=== PATIENT | male | born 1965 | race Hispanic/Latino ===

== ENCOUNTER 2017-07-08 19:42 | Emergency (ER) | payer OTHER ==
[2017-07-08] MEDS ORDERED: CEFAZOLIN SODIUM 1 GM/VIAL ONE (20:57)
[2017-07-08] MEDS ORDERED: FENTANYL CITR 100 MCG/2 ML ONE (20:57)
[2017-07-08] MEDS ORDERED: TETANUS & DIPHTHERIA TOX,ADULT 0.5 ML VIAL ONE (20:58)
[2017-07-08] MEDS ORDERED: NA CHLORIDE 0.9% 100 ML IV ONE (20:59)
--- NOTE | 2017-07-08 21:08 | RAD REPORT ---
EXAM DESCRIPTION: RAD - Foot Left 3 View - 07/08/2017 8:58 pm CLINICAL HISTORY: Left Foot pain status post injury FINDINGS: A bony density along the medial aspect of the first MTP joint likely is chronic. Clinical correlation is needed to make sure the patient does not have point tenderness in this region to sugge st an acute process No dislocation is noted. A soft tissue laceration is present along ventral aspect of forefoot. Radiopaque foreign body is not seen
[2017-07-08] MEDS ORDERED: LIDOCAINE 1% 20 ML MDV ONE (22:00)
--- NOTE | 2017-07-08 22:15 | ER ---
Nurse's Notes [facility] Name: Yunior Galindo Age: 52 yrs Sex: Male : 1965 Arrival Date: 07/08/2017 Time: 19:45 Bed 26 Private MD: Diagnosis: Laceration without foreign body, left foot-with tendon injury Presentation: 07/08 19:58 Presenting complaint: Patient states: I cut my left foot with a chain saw, CMS intact, la1 pt presents with dressing applied. Transition of care: patient was not received from another setting of care. Complicating Factors: There are no complicating factors for this patient. Onset of symptoms was July 08, 2017. Care prior to arrival: None. 19:58 Method Of Arrival: Ambulatory la1 19:58 Acuity: RUDY 3 la1 Historical: - Allergies: 19:59 No Known Allergies; la1 - PMHx: 19:59 Asthma; BPH; Hyperlipidemia; la1 - Immunization history:: Adult Immunizations up to date. - Social history:: Smoking status: Patient/guardian denies using tobacco. Screenin:24 Abuse screen: Denies threats or abuse. Nutritional screening: No deficits noted. tl3 Tuberculosis screening: No symptoms or risk factors identified. Fall Risk None identified. Assessment: 20:24 General: Appears in no apparent distress. well groomed, well developed, well nourished, tl3 Behavior is calm, cooperative, appropriate for age. Pain: Complains of pain in top of left foot. Neuro: Level of Consciousness is awake, alert, obeys commands, Oriented to person, place, time, situation, Appropriate for age. Cardiovascular: Heart tones S1 S2 present Capillary refill < 3 seconds in bilateral fingers toes. Respiratory: Airway is patent Trachea midline Breath sounds are clear bilaterally. GI: Abdomen is round Bowel sounds present X 4 quads. : No signs and/or symptoms were reported regarding the genitourinary system. EENT: No signs and/or symptoms were reported regarding the EENT system. Derm: No signs and/or symptoms reported regarding the dermatologic system. Derm: No signs and/or symptoms reported regarding the dermatologic system. Reports pain that is 10 out of 10 on a pain scale. 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 Musculoskeletal: Capillary refill < 3 seconds, in left toes. Injury Description: Laceration sustained to left foot is contaminated, jagged. 21:25 Reassessment: Patient appears in no apparent distress at this time. No changes from tl3 previously documented assessment. Patient and/or family updated on plan of care and expected duration. Pain level reassessed. Patient is alert, oriented x 3, equal unlabored respirations, skin warm/dry/pink. 23:00 Reassessment: Patient and/or family updated on plan of care and expected duration. Pain tl3 level reassessed. Patient is alert, oriented x 3, equal unlabored respirations, skin warm/dry/pink. pt tolerated sutures and splinting well. Vital Signs: 19:59 BP 130 / 92; Pulse 86; Resp 16; Temp 98.4(TE); Pulse Ox 100% on R/A; Weight 77.11 kg; la1 Height 5 ft. 4 in. (162.56 cm); 21:25 BP 128 / 75; Pulse 82; Resp 16; Pulse Ox 100% on R/A; tl3 23:00 BP 130 / 78; Pulse 78; Resp 16; Pulse Ox 99% on R/A; tl3 19:59 Body Mass Index 29.18 (77.11 kg, 162.56 cm) la1 ED Course: 19:45 Patient arrived in ED. am2 19:58 Triage completed. la1 19:59 Arm band placed on left wrist. la1 20:02 Alden Moise PA is PHCP. aa1 20:02 Lukas Light MD is Attending Physician. aa1 20:24 Yuridia Campa, WAYNE is Primary Nurse. tl3 20:24 No apparent distress. tl3 20:24 Patient has correct armband on for positive identification. Bed in low position. Side tl3 rails up X 1. 20:24 No provider procedures requiring assistance completed. tl3 20:59 XRAY Foot LEFT 3 View In Process Unspecified. EDMS 21:25 Warm blanket given. tl3 22:13 Checo Alcaraz MD is Referral Physician. jr8 23:00 Crutch training done. Orthoglass splint: Posterior short lleg splint applied on right tl3 leg. 23:00 IV discontinued, intact, bleeding controlled, No redness/swelling at site. Pressure tl3 dressing applied. 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 Exp: tl3 07/13/2019. Lot #: [id number]. } Route: IM; Site: right deltoid; 07/09 02:18 Follow up: Response: No adverse reaction tl3 07/08 21:00 Drug: Ancef 1 grams Route: IVPB; Site: left antecubital; Delivery: Primary tubing; tl3 07/09 02:17 Follow up: Response: No adverse reaction tl3 07/08 21:20 Drug: Lidocaine (1 %) 1 vials {Note: per Alden.} Volume: 20 ml; Route: Infiltration; tl3 07/09 02:15 Follow up: Response: No adverse reaction tl3 Outcome: 07/08 22:14 Discharge ordered by . jr8 23:00 Discharged to home ambulatory. tl3 23:00 Condition: good 23:00 Discharge instructions given to patient, family, Instructed on discharge instructions, follow up and referral plans. medication usage, crutch walking, Demonstrated understanding of instructions, follow-up care, medications, crutch walking, splint care, Prescriptions given X 1, 2. 23:16 Patient left the ED. tl3 Signatures: Dispatcher [employer] EDMS Mary Farmer RN RN aa1 Alden Moise PA PA jr8 Jovon Dubose RN RN la1 Pascale Rodriguez Tammy, RN RN tl3 Corrections: (The following items were deleted from the chart) 07/09 02:22 07/08 21:25 Crutch training done. Orthoglass splint: Posterior short lleg splint tl3 applied on right leg. tl3
--- NOTE | 2017-07-08 22:15 | EDPHYS ---
Physician Documentation [facility] Name: Yunior Galindo Age: 52 yrs Sex: Male : 1965 Arrival Date: 07/08/2017 Time: 19:45 Bed 26 Private MD: ED Physician Lukas Light HPI: 07/08 21:16 This 52 yrs old Male presents to ER via Ambulatory with complaints of jr8 Laceration To Foot. 21:16 Onset: The symptoms/episode began/occurred acutely, today. Associated signs and jr8 symptoms: The patient has no apparent associated signs or symptoms. The patient has not experienced similar symptoms in the past. The patient has not recently seen a physician. Patient stated that he accidently cut left foot with chain saw . Historical: - Allergies: 19:59 No Known Allergies; la1 - PMHx: 19:59 Asthma; BPH; Hyperlipidemia; la1 - Immunization history:: Adult Immunizations up to date. - Social history:: Smoking status: Patient/guardian denies using tobacco. ROS: 21:17 Eyes: Negative for injury, pain, redness, and discharge, ENT: Negative for injury, jr8 pain, and discharge, Neck: Negative for injury, pain, and swelling, Cardiovascular: Negative for chest pain, palpitations, and edema, Respiratory: Negative for shortness of breath, cough, wheezing, and pleuritic chest pain, Abdomen/GI: Negative for abdominal pain, nausea, vomiting, diarrhea, and constipation, Back: Negative for injury and pain, MS/Extremity: Negative for injury and deformity, Neuro: Negative for headache, weakness, numbness, tingling, and seizure. 21:17 Skin: Positive for laceration(s), of the left foot. Exam: 21:17 Cardiovascular: Regular rate and rhythm with a normal S1 and S2. No gallops, murmurs, jr8 or rubs. Normal PMI, no JVD. No pulse deficits. Respiratory: Lungs have equal breath sounds bilaterally, clear to auscultation and percussion. No rales, rhonchi or wheezes noted. No increased work of breathing, no retractions or nasal flaring. Abdomen/GI: Soft, non-tender, with normal bowel sounds. No distension or tympany. No guarding or rebound. No evidence of tenderness throughout. Back: No spinal tenderness. No costovertebral tenderness. Full range of motion. Skin: Warm, dry with normal turgor. Normal color with no rashes, no lesions, and no evidence of cellulitis. Neuro: Awake and alert, GCS 15, oriented to person, place, time, and situation. Cranial nerves II-XII grossly intact. Motor strength 5/5 in all extremities. Sensory grossly intact. Cerebellar exam normal. Normal gait. 21:17 Musculoskeletal/extremity: Extremities: grossly normal except: noted in the left foot: Patient has approximately 7 cm laceration to dorsum of left foot extending over 1st digit. Tendon injury noted to what appears to be the extensor hallicus longus , ROM: Decreased extensor motion to first digit of foot. Otherwise full ROM noted to affected foot , Circulation is intact in all extremities. Sensation intact. Vital Signs: 19:59 BP 130 / 92; Pulse 86; Resp 16; Temp 98.4(TE); Pulse Ox 100% on R/A; Weight 77.11 kg; la1 Height 5 ft. 4 in. (162.56 cm); 21:25 BP 128 / 75; Pulse 82; Resp 16; Pulse Ox 100% on R/A; tl3 23:00 BP 130 / 78; Pulse 78; Resp 16; Pulse Ox 99% on R/A; tl3 19:59 Body Mass Index 29.18 (77.11 kg, 162.56 cm) la1 Procedures: 22:13 Splinting: Splint applied to left foot using Orthoglass splint, applied by nurse. jr8 Examined by me, post splint application: neurovascular intact, 2+ distal pulses palpable, brisk capillary refill noted, Patient tolerated well. Laceration: 22:13 Wound Repair of 7cm ( 2.8in ) subcutaneous laceration to left foot. Irregularly jr8 shaped.. Minimal bleeding noted.. Distal neuro/vascular/tendon intact. Anesthesia: Local anesthetic administered with 8 mls of 1% lidocaine. Wound prep: Extensive cleansing with betadine, Wound irrigation with saline, Wound margin revised moderately, Wound explored extensively, Copious irrigation. Skin closed with 10 4-0 Prolene using interrupted sutures and sterile technique. Patient tolerated well. MDM: 20:13 Patient medically screened. jr8 21:17 Data reviewed: vital signs, nurses notes, radiologic studies, plain films. Counseling: jr8 I had a detailed discussion with the patient and/or guardian regarding: the historical points, exam findings, and any diagnostic results supporting the discharge/admit diagnosis, radiology results, the need for outpatient follow up, a orthopedic surgeon. ED course: Dr. Alcaraz consulted about tendon injury. Will be glad to see patient in the AM at his office. To go ahead and close wound for time being . 07/08 20:16 Order name: XRAY Foot LEFT 3 View; Complete Time: 21:09 8 07/08 20:18 Order name: IV; Complete Time: 02:17 8 07/08 22:12 Order name: Splint; Complete Time: 02:15 jr8 Administered Medications: 20:18 CANCELLED (Physician Discretion): Ancef 1 grams IM once 8 20:20 Drug: fentaNYL (PF) 50 mcg Route: IVP; Site: left antecubital; 3 21:00 Follow up: Response: No adverse reaction; Pain is decreased tl3 21:00 Drug: Tetanus-Diphtheria Toxoid Adult 0.5 ml {Super[employer] Par[employer]: [employer] ([employer]). Exp: tl3 07/13/2019. Lot #: [id number]. } Route: IM; Site: right deltoid; 07/09 02:18 Follow up: Response: No adverse reaction 3 07/08 21:00 Drug: Ancef 1 grams Route: IVPB; Site: left antecubital; Delivery: Primary tubing; 3 07/09 02:17 Follow up: Response: No adverse reaction 3 07/08 21:20 Drug: Lidocaine (1 %) 1 vials {Note: per Alden.} Volume: 20 ml; Route: Infiltration; 3 07/09 02:15 Follow up: Response: No adverse reaction 3 Disposition: 00:19 Co-signature as Attending Physician, Lukas Light MD. pkl Disposition: 07/08/17 22:14 Discharged to Home. Impression: Laceration without foreign body, left foot - with tendon injury . - Condition is Stable. - Discharge Instructions: Tendon Injury, Tendon Repair, Laceration Care, Adult, [id number]. - Prescriptions for Keflex 500 mg Oral Capsule - take 1 capsule by ORAL route every 8 hours for 10 days; 30 capsule. Tylenol- Codeine #3 300-30 mg Oral Tablet - take 2 tablet by ORAL route every 6 hours As needed; 30 tablet. - Medication Reconciliation Form, Thank You Letter, Antibiotic Education, Prescription Opioid Use form. - Follow up: Checo Alcaraz MD; When: Tomorrow; Reason: Recheck today's complaints, Continuance of care, Re-evaluation by your physician. - Problem is new. - Symptoms have improved. Signatures: Dispatcher [employer] EDMS Lukas Light MD MD pkl Roszak, Josh, PA PA jr8 Jovon Dubose RN RN la1 Yuridia Campa RN RN tl3 Corrections: (The following items were deleted from the chart) 07/08 20:18 20:17 Ancef 1 grams IM once ordered. jr8 jr8
[2017-07-08 23:19] VITALS: BP 130/92; TEMP 98.4; O2SAT 100
== END 2017-07-08 23:16 | disposition home or self-care (01) ==
LOC: ER 19:42
PROC: 0JQR0ZZ Repair Left Foot Subcutaneous Tissue and Fascia, Open Approach (ICD-10-PCS; principal; 2017-07-08)
PROC: 2W3RX1Z Immobilization of Left Lower Leg using Splint (ICD-10-PCS; 2017-07-08)
DX: S91.312A Laceration without foreign body, left foot, initial encounter (principal); W29.3XXA Contact with powered garden and outdoor hand tools and machinery, initial encounter; Y93.9 Activity, unspecified; Y92.9 Unspecified place or not applicable; Y99.9 Unspecified external cause status
CPT/HCPCS: 90714; 96374; 96375; 99284; J0690; J3010

== ENCOUNTER 2020-05-23 22:49 | Emergency (ER) | payer SELFPAY ==
[2020-05-23] MEDS ORDERED: NA CHLORIDE 0.9% 1,000 ML ONE (23:49)
[2020-05-23 23:54] LABS: Protime INR 0.93
[2020-05-23 23:55] LABS: Absolute Lymphocytes (CBC) 1.7 K/uL (0.7-4.9); Basophils % 0.6 % (0-1.3); Hematocrit 45.9 % (39.6-49.0); Lymphocytes % 17.6 % (15.3-44.8); MPV 9.8 fL (7.6-11.3); RBC Red Blood Cell Count 5.04 M/uL (4.33-5.43)
[2020-05-24 00:19] LABS: ALT/SGPT 44 U/L (12-78); AST/SGOT 26 U/L (15-37); Albumin 4.3 g/dL (3.4-5.0); Alkaline Phosphatase 107 U/L (45-117); BUN Blood Urea Nitrogen 19 mg/dL (7-18); Bicarbonate 24 mmol/L (21-32); Bilirubin Direct < 0.1 mg/dL (0-0.2); Bilirubin Total 0.5 mg/dL (0.2-1.0); Glucose Level 115 mg/dL (74-106); Magnesium 2.1 mg/dL (1.8-2.4); NT PRO-BNP 111 pg/mL (<125); Potassium 3.9 mmol/L (3.5-5.1); Protein, Total 8.4 g/dL (6.4-8.2); Sodium Level 141 mmol/L (136-145); Troponin (Emerg Dept Use Only) < 0.02 ng/mL (0.0-0.045)
--- NOTE | 2020-05-24 00:44 | ER ---
Nurse's Notes [facility] Name: Yunior Galindo Age: 54 yrs Sex: Male : 1965 Arrival Date: 05/23/2020 Time: 22:53 Bed 15 Private MD: Diagnosis: Syncope and collapse Presentation: 05/23 23:01 Chief complaint: EMS states: Patient was standing and suddenly passed out and fell onto 1 back. EMS stated that by standards stated patient did not hit head, also stated patient was confused upon arrival but is now AOx4. Patient has no history of seizures. Patient currently takes hydrocodone PRN for chronic back pain and Ambien to aid in sleep. Coronavirus screen: Client denies travel out of the [place] in the last 14 days. Ebola Screen: Patient negative for fever greater than or equal to 101.5 degrees Fahrenheit, and additional compatible Ebola Virus Disease symptoms. Initial Sepsis Screen: Does the patient meet any 2 criteria? No. Patient's initial sepsis screen is negative. Does the patient have a suspected source of infection? No. Patient's initial sepsis screen is negative. Risk Assessment: Do you want to hurt yourself or someone else? Patient reports no desire to harm self or others. Onset of symptoms was May 23, 2020. 23:01 Method Of Arrival: EMS: [facility] 23:01 Acuity: RUDY 3 vg1 Historical: - Allergies: 23:07 No Known Allergies; vg1 - Home Meds: 23:07 Ambien 5 mg Oral tab 1 tab once daily for Sleep-Onset Insomnia [Active]; tamsulosin 0.4 vg1 mg Oral cp24 1 cap once daily for Symptomatic Benign Prostatic Hyperplasia [Active]; naproxen 250 mg Oral tab [Active]; - PMHx: 23:07 Asthma; BPH; Hyperlipidemia; vg1 - Immunization history:: Adult Immunizations up to date. - Social history:: Smoking status: Patient denies any tobacco usage or history of. Screenin:08 Abuse screen: Denies threats or abuse. Nutritional screening: No deficits noted. vg1 Tuberculosis screening: No symptoms or risk factors identified. Fall Risk Fall in past 12 months (25 points). No secondary diagnosis (0 pts). No IV (0 pts). Ambulatory Aid- None/Bed Rest/Nurse Assist (0 pts). Gait- Normal/Bed Rest/Wheelchair (0 pts) Mental Status- Oriented to own ability (0 pts). Total Rodriguez Fall Scale indicates Low Risk Score (25-44 pts). Fall prevention measures have been instituted. Side Rails Up X 2 Placed close to Nursing Station. Assessment: 23:07 General: Appears in no apparent distress. comfortable, Behavior is calm, cooperative. vg1 Pain: Denies pain. Neuro: Level of Consciousness is awake, alert, obeys commands, Oriented to person, place, time, situation. Cardiovascular: Patient's skin is warm and dry. Respiratory: Airway is patent Respiratory effort is even, unlabored, Respiratory pattern is regular, symmetrical. GI: No signs and/or symptoms were reported involving the gastrointestinal system. : No signs and/or symptoms were reported regarding the genitourinary system. EENT: No signs and/or symptoms were reported regarding the EENT system. Derm: Skin is intact, is healthy with good turgor. Musculoskeletal: Circulation, motion, and sensation intact. Vital Signs: 23:01 BP 151 / 77; Pulse 106; Resp 18; Temp 98.2; Pulse Ox 98% on R/A; Weight 81.65 kg; vg1 Height 5 ft. 6 in. (167.64 cm); Pain 0/10; 23:38 BP 164 / 92 Supine; Pulse 90; vg1 23:41 BP 165 / 88 Sitting; Pulse 95; vg1 23:44 BP 161 / 99 Standing; Pulse 99; vg1 05/24 00:51 BP 151 / 89; Pulse 80; Resp 18; Pulse Ox 100% on R/A; mg2 05/23 23:01 Body Mass Index 29.05 (81.65 kg, 167.64 cm) vg1 ED Course: 05/23 22:53 Patient arrived in ED. mw2 22:55 Callie Pressley RN is Primary Nurse. vg1 23:00 Eduardo Love NP is PHCP. pm1 23:00 Stewart Farfan MD is Attending Physician. pm1 23:05 Triage completed. vg1 23:09 Patient has correct armband on for positive identification. Placed in gown. Bed in low vg1 position. Call light in reach. Side rails up X 1. 23:09 Arm band placed on. vg1 23:40 Inserted saline lock: 20 gauge in left antecubital area, using aseptic technique. Blood mg2 collected. 23:42 No provider procedures requiring assistance completed. mg2 23:[address] via stretcher. vg1 05/24 00:50 IV discontinued, intact, bleeding controlled, No redness/swelling at site. Pressure mg2 dressing applied. 06:16 XRAY Chest (1 view) In Process Unspecified. EDMS 06:16 CT Head Brain wo Cont In Process Unspecified. EDMS Administered Medications: 05/23 23:41 Drug: NS 0.9% 1000 ml Route: IV; Rate: 1000 ml; Site: left antecubital; mg2 Outcome: 05/24 00:43 Discharge ordered by MD. pm1 00:51 Discharged to home via wheelchair. mg2 00:51 Condition: stable 00:51 Discharge instructions given to patient, Instructed on discharge instructions, follow up and referral plans. Demonstrated understanding of instructions, follow-up care, medications. 00:52 Patient left the ED. mg2 Signatures: Dispatcher [employer] EDMS Eduardo Love, MILTON ETHNOGRAPHER pm1 Arjun Gibson mw2 Jalil Lange, RN RN mg2 Callie Pressley RN RN vg1
--- NOTE | 2020-05-24 00:44 | EDPHYS ---
Physician Documentation [facility] Name: Yunior Galindo Age: 54 yrs Sex: Male : 1965 Arrival Date: 05/23/2020 Time: 22:53 Bed 15 Private MD: ED Physician Stewart Farfan HPI: 05/23 23:21 This 54 yrs old Male presents to ER via EMS with complaints of syncope. pm1 23:21 The patient has experienced syncope, collapsed. Onset: The symptoms/episode pm1 began/occurred just prior to arrival. Duration: This was a single episode. Context: the episode(s) was witnessed, by family, occurred at home, occurred while the patient was standing, Just prior to the episode the patient experienced no apparent symptoms. Associated injury: Other: lower lip, abrasion. Associated signs and symptoms: The patient has no apparent associated signs or symptoms, Pertinent negatives: chest pain, diaphoresis, dizziness, headache, nausea, numbness, palpitations, shortness of breath, tingling, vertigo. The patient has not experienced similar symptoms in the past. Historical: - Allergies: 23:07 No Known Allergies; vg1 - Home Meds: 23:07 Ambien 5 mg Oral tab 1 tab once daily for Sleep-Onset Insomnia [Active]; tamsulosin 0.4 vg1 mg Oral cp24 1 cap once daily for Symptomatic Benign Prostatic Hyperplasia [Active]; naproxen 250 mg Oral tab [Active]; - PMHx: 23:07 Asthma; BPH; Hyperlipidemia; vg1 - Immunization history:: Adult Immunizations up to date. - Social history:: Smoking status: Patient denies any tobacco usage or history of. ROS: 23:21 Constitutional: Negative for fever, chills, and weight loss, Neck: Negative for injury, pm1 pain, and swelling, Cardiovascular: Negative for chest pain, palpitations, and edema, Respiratory: Negative for shortness of breath, cough, wheezing, and pleuritic chest pain, Abdomen/GI: Negative for abdominal pain, nausea, vomiting, diarrhea, and constipation, Back: Negative for injury and pain, MS/Extremity: Negative for injury and deformity, Skin: Negative for injury, rash, and discoloration. 23:21 Neuro: Positive for syncope, Negative for dizziness, headache, numbness, tingling, weakness. Exam: 23:21 Abdomen/GI: Exam negative for acute changes, Inspection: abdomen appears normal, pm1 Palpation: abdomen is soft and non-tender, in all quadrants. 23:21 Constitutional: This is a well developed, well nourished patient who is awake, alert, and in no acute distress. Head/Face: Normocephalic, atraumatic. Neck: Trachea midline, no thyromegaly or masses palpated, and no cervical lymphadenopathy. Supple, full range of motion without nuchal rigidity, or vertebral point tenderness. No Meningismus. Chest/axilla: Normal chest wall appearance and motion. Nontender with no deformity. No lesions are appreciated. 23:21 Back: No spinal tenderness. No costovertebral tenderness. Full range of motion. Skin: Warm, dry with normal turgor. Normal color with no rashes, no lesions, and no evidence of cellulitis. MS/ Extremity: Pulses equal, no cyanosis. Neurovascular intact. Full, normal range of motion. 23:21 Cardiovascular: Exam negative for acute changes, Rate: normal, Rhythm: regular, Pulses: no pulse deficits are appreciated, Heart sounds: normal, normal S1and S2, Edema: is not appreciated. 23:21 Respiratory: Exam negative for acute changes, the patient does not display signs of respiratory distress, Respirations: normal, Breath sounds: are clear throughout. 23:21 Neuro: Exam negative for acute changes, Orientation: is normal, Mentation: is normal, Motor: is normal, moves all fours. Vital Signs: 23:01 BP 151 / 77; Pulse 106; Resp 18; Temp 98.2; Pulse Ox 98% on R/A; Weight 81.65 kg; vg1 Height 5 ft. 6 in. (167.64 cm); Pain 0/10; 23:38 BP 164 / 92 Supine; Pulse 90; vg1 23:41 BP 165 / 88 Sitting; Pulse 95; vg1 23:44 BP 161 / 99 Standing; Pulse 99; vg1 05/24 00:51 BP 151 / 89; Pulse 80; Resp 18; Pulse Ox 100% on R/A; mg2 05/23 23:01 Body Mass Index 29.05 (81.65 kg, 167.64 cm) vg1 MDM: 05/23 23:18 Patient medically screened. pm1 05/24 00:38 Data reviewed: vital signs. Data interpreted: Pulse oximetry: on room air is 98 %. pm1 Interpretation: normal. 00:38 Counseling: I had a detailed discussion with the patient and/or guardian regarding: the pm1 historical points, exam findings, and any diagnostic results supporting the discharge/admit diagnosis, lab results, radiology results, Offered admission to the patient but he would like to go home. Patient without any complaints. Instructed the patient to follow up with his PCP and educated on return precautions. 05/23 23:21 Order name: Basic Metabolic Panel pm1 05/23 23:21 Order name: CBC with Diff pm1 05/23 23:21 Order name: LFT's pm05/23 23:21 Order name: Magnesium pm05/23 23:21 Order name: NT PRO-BNP pm05/23 23:21 Order name: PT-INR pm05/23 23:21 Order name: Troponin (emerg Dept Use Only) pm05/23 23:55 Order name: Protime (+INR); Complete Time: 00:31 EDMS 05/23 23:56 Order name: CBC with Automated Diff; Complete Time: 00:31 EDMS 05/24 00:19 Order name: Basic Metabolic Panel; Complete Time: 00:31 EDMS 05/24 00:19 Order name: Liver (Hepatic) Function; Complete Time: 00:31 EDMS 05/24 00:19 Order name: Troponin (Emerg Dept Use Only); Complete Time: 00:31 EDMS 05/24 00:19 Order name: NT PRO-BNP; Complete Time: 00:31 EDMS 05/24 00:19 Order name: Magnesium; Complete Time: 00:31 ED05/23 23:21 Order name: XRAY Chest (1 view) pm05/23 23:21 Order name: EKG; Complete Time: 23:22 pm05/23 23:21 Order name: Cardiac monitoring; Complete Time: 23:42 pm05/23 23:21 Order name: EKG - Nurse/Tech; Complete Time: 23:42 pm05/23 23:21 Order name: IV Saline Lock; Complete Time: 23:42 pm05/23 23:21 Order name: Labs collected and sent; Complete Time: 23:42 pm05/23 23:21 Order name: O2 Per Protocol; Complete Time: 23:22 pm1 05/23 23:21 Order name: O2 Sat Monitoring; Complete Time: 23:22 pm1 05/23 23:21 Order name: CT Head Brain wo Cont pm1 05/23 23:21 Order name: Orthostatics; Complete Time: 23:41 pm1 Administered Medications: 05/23 23:41 Drug: NS 0.9% 1000 ml Route: IV; Rate: 1000 ml; Site: left antecubital; mg2 Disposition: 05/24 02:34 Co-signature as Attending Physician, Stewart Farfan MD. [email or web address] Disposition: 05/24/20 00:43 Discharged to Home. Impression: Syncope and collapse. - Condition is Stable. - Discharge Instructions: Syncope. - Medication Reconciliation Form, Thank You Letter, Antibiotic Education, Prescription Opioid Use form. - Follow up: Emergency Department; When: As needed; Reason: Worsening of condition. Follow up: Private Physician; When: 2 - 3 days; Reason: Recheck today's complaints, Continuance of care, Re-evaluation by your physician. - Problem is new. - Symptoms have improved. Signatures: Dispatcher [employer] EDMS Eduardo Love, AUCTIONEER AUTOMOBILE AUCTIONEER AUTOMOBILE pm1 Jalil Lange RN RN mg2 Callie Pressley RN RN vg1 Stewart Farfan MD MD 7 Corrections: (The following items were deleted from the chart) 00:52 00:43 05/24/2020 00:43 Discharged to Home. Impression: Syncope and collapse. Condition mg2 is Stable. Forms are Medication Reconciliation Form, Thank You Letter, Antibiotic Education, Prescription Opioid Use. Follow up: Emergency Department; When: As needed; Reason: Worsening of condition. Follow up: Private Physician; When: 2 - 3 days; Reason: Recheck today's complaints, Continuance of care, Re-evaluation by your physician. Problem is new. Symptoms have improved. pm1
[2020-05-24 00:58] VITALS: TEMP 98.2
[2020-05-24 01:03] VITALS: BP 151/89; O2SAT 100
--- NOTE | 2020-05-24 08:33 | RAD REPORT ---
EXAM DESCRIPTION: RAD - Chest Single View - 05/23/2020 11:43 pm CLINICAL HISTORY: Syncope, shortness of breath COMPARISON: February 2016 TECHNIQUE: AP portable chest image was obtained 05/23/2020 11:43 pm . FINDINGS: Lung volumes are low. Interstitial pattern is similar to comparison. Pericardial fat pads are present. Heart size has increased from the prior study though there is no vascular engorgement or other findings of failure or volume overload. No measurable pleural effusion and no pneumothorax. No acute bony abnormality seen. No acute aortic findings suspected. IMPRESSION: No acute cardiopulmonary process. Heart size has increased since 2016, but no additional finding to suspect acute failure or volume ove rload.
--- NOTE | 2020-05-24 13:13 | EKG ---
Test Date: 2020-05-23 Test Time: 23:34:31 Junk Dealer: AL MEASUREMENT RESULTS: Intervals: Rate: 102 NC: 138 QRSD: 98 QT: 354 QTc: 461 [place]: P: 54 NC: 138 QRS: 66 T: 28 INTERPRETIVE STATEMENTS: Sinus tachycardia Cannot rule out Anterior infarct, age undetermined Abnormal ECG Compared to ECG 02/18/2016 21:04:12 Sinus bradycardia no longer present Myocardial infarct finding still present Electronically Signed On 05-24-20 13:12:23 VENDING ROUTE DRIVER by Benito Burroughs
--- NOTE | 2020-05-24 13:53 | RAD REPORT ---
EXAM DESCRIPTION: CT - Head Brain Wo Cont - 05/24/2020 1:10 am RadLex: CT HEAD WITHOUT IV CONTRAST CLINICAL HISTORY: SYNCOPE. TECHNIQUE: Axial, coronal, and sagittal images through the brain were performed in the absence of in travenous contrast. This exam was performed according to our departmental dose-optimization program w hich includes use of Automated Exposure Control, adjustment of the mA and/or kV according to patient size and/or use of iterative reconstruction technique. COMPARISON: None. FINDINGS: The brain parenchyma appears unremarkable. There is no intra-axial or extra-axial bleed se en. There is no mass or mass effect. The ventricles are normal in size shape and configuration. The o rbital contents appear unremarkable. Small mucosal retention cyst in the right sphenoid sinus. The visualized paranasal sinuses and mastoi d air cells otherwise clear. No fracture is identified. IMPRESSION: No acute intracranial abnormality identified. Electronically signed by: Saida Aponte MD 05/24/2020 12:09 AM TELEGRAPHIC TYPEWRITER INSTALLER Due to temporary technical issues with the PACS/Fluency reporting system, reports are being signed by the in house radiologists without review as a courtesy to insure prompt reporting. The interpreting radiologist is fully responsible for the content of the report.
== END 2020-05-24 00:52 | disposition home or self-care (01) ==
LOC: ER 22:49
DX: R55 Syncope and collapse (principal); E78.5 Hyperlipidemia, unspecified; N40.0 Benign prostatic hyperplasia without lower urinary tract symptoms
CPT/HCPCS: 36415; 70450; 71045; 80048; 80076; 83735; 83880; 84484; 85025; 85610; 93005; 99284; J7030

== ENCOUNTER 2023-02-04 11:04 | Emergency (ER) | payer SELFPAY ==
--- OUTSIDE RECORDS SUMMARY | 2023-02-04 11:08 | XMS REPORT | Continuity of Care Document ---
:1965 Author Organization [facility] t Address [address] [place] [address] [place] [id number] Care Team Providers Name Role Phone Denton Johnson MD Primary Care Physician LENA ALBA Attending Clinician Unavailable DENTON JOHNSON Attending Clinician Unavailable Lena Keating Attending Clinician RENUKA CARLSON Attending Clinician Unavailable Payers Payer Name Policy Type Policy Number Effective Date Expiration Date Gabi POWER 2 [id number] 2021 00:00:00 HLTH-ENTRST/PPO Problems Condition Condition Condition Status Onset Resolution Last Treating Co mments Source Name Details Category Date Date Treatment Clinician Date Lumbar Lumbar Disease Active [place] spondylosi spondylosi 2-20 Se ybold s s 00:00: 00 Chronic Chronic Disease Active 2018-0 [place] pain 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 00:00: 00 Lumbar Lumbar Disease Active 2019-0 [place] radiculopa radiculopa 2-20 Se ybold thy thy 00:00: 00 Allergies, Adverse Reactions, Alerts Allergy Allergy Status Severity Reaction(s) Onset Inactive Treating Comm ents Source Name Type Date Date Clinician NO KNOWN Drug Active [facility]ERG[facility] Class [facility] Social History Social Habit Start Date Stop Date Quantity Comments Source History of Cigarette Smoker [place] deleonbojohn tobacco use Exposure to Not sure [facility] mcintyre SARS-CoV-2 (event) Sex Assigned At [birth year] [place] Se ybold 00:00:00 00:00:00 Smoking Status Start Date Stop Date Source Occasional tobacco smoker 2021-03-24 00:00:00 Shubham chan Seybold Medications Ordered Filled Start Stop Current Ordering Indication Dosage Frequency Signature Comments Components Source Medication Medication Date Date Medication? Clinician (SIG) Name Name Naproxen 2020-04- naproxen Genoveva ey 375 MG oral 2-16 12-16 375 mg Seybo ld Tablet 13:35: 00:00 tablet 49 :00 Tamsulosin 2020-04- tamsulosin [place] HCl 0.4 MG 2-16 12-16 0.4 mg Seybol d oral 13:10: 00:00 capsule Capsule 59 :00 Tizanidine 2020-04 Yes 1{each} 1 each Ke lsey HCl 4 MG 2-16 Seybold oral Tablet 13:10: 43 Atorvastati 2020-04 Yes [id number] TAKE 1 [place] n Calcium 2-16 TABLET BY Seybo ld 40 MG oral 00:00: MOUTH Tablet 00 EVERY DAY Budesonide- 2020-04 Yes [id number] INHALE 2 [place] Formoterol 2-16 PUFFS BY Seybo ld Fumarate 00:00: MOUTH (Symbicort) 00 EVERY DAY 80-4.5 MCG/ACT inhalation Aerosol Dutasteride 2020-04 Yes [id number] 1{capsu Take 1 [place] -Tamsulosin 2-16 le} capsule by Se ybold HCl 0.5-0.4 00:00: mouth MG oral 00 daily Capsule Zolpidem 2020-04 Yes [id number] Take 1 tab [place] Tartrate 10 2-16 by mouth Seyb old MG oral 00:00: at night Tablet 00 as needed for sleep Naproxen 2020-04 Yes [id number] naproxen [place] 375 MG oral 2-16 375 mg Seybol d Tablet 00:00: tablet. 00 Take one tablet by mouth every 8 hours as needed for pain. Naproxen 2020-04- No [id number] naproxen [place] 375 MG oral 2-16 12-16 375 mg Seybo ld Tablet 00:00: 00:00 tablet 00 :00 Zolpidem 2020-04- No [id number] Take 1 tab [place] Tartrate 10 2-16 12-16 by mouth Sey bold MG oral 00:00: 00:00 at night Tablet 00 :00 as needed for sleep Tamsulosin 2020- No [id number] TAKE 1 [place] HCl 0.4 MG 8-04 -16 CAPSULE BY Se ybold oral 00:00: 00:00 MOUTH Capsule 00 :00 EVERY DAY Trazodone Yes [id number] 50mg Take 1 K elsey HCl 50 MG 7-09 tablet (50 Seyb old oral Tablet 00:00: mg total) 00 by mouth nightly Atorvastati 2020- No [id number] TAKE 1 [place] n Calcium 07-26-16 TABLET BY Seyb old 40 MG oral 00:00: 00:00 MOUTH Tablet 00 :00 EVERY DAY Naproxen 2020- No [id number] Take 1 tab [place] 500 MG oral 07-19-16 twice Seybol d Tablet 00:00: 00:00 daily as 00 :00 needed for pain Budesonide- 2020- No [id number] INHALE 2 [place] Formoterol 4-03 20-16 PUFFS BY Seyb old Fumarate 00:00: 00:00 MOUTH (Symbicort) 00 :00 EVERY DAY 80-4.5 MCG/ACT inhalation Aerosol Zolpidem 2020- No [id number] Take 1 tab [place] Tartrate 10 4-12 12-16 by mouth Sey bold MG oral 00:00: 00:00 at night Tablet 00 :00 as needed for sleep HYDROcodone Yes TAKE 1 Genoveva ey -Acetaminop 3-31 TABLET BY Sey bold hen 10-325 00:00: MOUTH MG oral 00 EVERY DAY Tablet NEEDED FOR PAIN Vital Signs Vital Name Observation Time Observation Value Comments Source Systolic blood pressure 2021-03-24 19:05:00 140 mm[Hg] [facility] Alvarezybold Diastolic blood 2021-03-24 19:05:00 78 mm[Hg] João y ybold pressure Heart rate 2021-03-24 19:05:00 72 /min [place] paul Body temperature 2021-03-24 19:05:00 36.78 Adwoa Genoveva ey Seybold Respiratory rate 2021-03-24 19:05:00 12 /min Genoveva Jose Body height 2021-03-24 19:05:00 167.6 cm [facility] paul Body weight 2021-03-24 19:05:00 84.823 kg [place] paul BMI 2021-03-24 19:05:00 30.18 kg/m2 [place] paul Procedures This patient has no known procedures. Encounters Start End Encounter Admission Attending Care Care Encounter Source Date/Time Date/Time Type Type Clinicians Facility Department ID 2022-11-24 2022-11-24 Outpatient PALMIRA ALBA [id number] [place] 00:00:00 00:00:00 LENA Seybol d 2022-10-04 2022-10-04 Outpatient PALMIRA ALBA [id number] [place] 00:00:00 00:00:00 LENA Seybol d 2022-07-11 2022-07-11 Outpatient PALM[facility]A ALBA [id number] [place] 00:00:00 00:00:00 LENA Seybol d 2022-06-04 2022-06-04 Outpatient PALMIRA ALBA [id number] [place] 00:00:00 00:00:00 LENA Seybol d 2022-04-07 2022-04-07 Outpatient PALMIRA ALBA [id number] [place] 00:00:00 00:00:00 LENA Seybol d 2022-04-05 2022-04-05 Outpatient PALMIRA ALBA [id number] [place] 00:00:00 00:00:00 LENA Seybol d 2022-03-16 2022-03-16 Outpatient PALMIRA ALBA [id number] [place] 00:00:00 00:00:00 LENA Seybol d 2021-10-18 2021-10-18 Outpatient PALMIRA ALBA [id number] [place] 00:00:00 00:00:00 LENA Seybol d 2021-06-17 2021-06-17 Outpatient PALMIRA ALBA [id number] [place] 00:00:00 00:00:00 LENA Seybol d 2021-06-16 2021-06-16 Outpatient PALMIRA ALBA [id number] [place] 00:00:00 00:00:00 LENA Seybol d 2021-05-19 2021-05-19 Outpatient PALMIRA ALBA [id number] [place] 00:00:00 00:00:00 LENA Seybol d 2021-03-31 2021-03-31 Outpatient DENTON JOHNSON [id number] [place] 00:00:00 00:00:00 Seybol d 2021-03-24 2021-03-24 Office Edsonariel Borrego [id number] [place] 13:00:00 13:30:00 Visit Lena Buchanan [id number] Se solomon [id number] 2021-03-24 2021-03-24 Outpatient PALMIRA ALBA [id number] [place] 00:00:00 00:00:00 LENA Seybol d 2021-03-21 2021-03-21 Outpatient DENTON JOHNSON [id number] [place] 00:00:00 00:00:00 Seybol d 2020-11-25 2020-11-25 Outpatient Coni CARLSON [facility] [id number] [facility] 13:30:00 13:30:00 RENUKA edmondson [facility] Results This patient has no known results.
--- NOTE | 2023-02-04 12:40 | RAD REPORT ---
EXAM DESCRIPTION: RAD - Shoulder Right 2 View - 02/04/2023 12:20 pm CLINICAL HISTORY: Right shoulder pain FINDINGS: Widening of the AC joint with elevation distal right clavicle Widening of coracoclavicular space These are compatible with significant ligamentous injuries. No fracture seen
--- NOTE | 2023-02-04 12:41 | RAD REPORT ---
EXAM DESCRIPTION: RAD - Clavicle Right - 02/04/2023 12:20 pm CLINICAL HISTORY: Right shoulder pain FINDINGS: Widening of the AC joint with elevation distal right clavicle Widening of coracoclavicular space These are compatible with significant ligamentous injuries. No fracture seen
--- NOTE | 2023-02-04 12:47 | ER ---
Nurse's Notes [facility] Name: Yunior Galindo Age: 57 yrs Sex: Male : 1965 Arrival Date: 02/04/2023 Time: 11:04 Bed IW1 Private MD: Diagnosis: Sprain of right acromioclavicular joint, initial encounter Presentation: 02/04 11:30 Chief complaint: Tripped while running yesterday, c/o right shoulder pain 01/16. hb Coronavirus screen: At this time, the client does not indicate any symptoms associated with coronavirus-19. Ebola Screen: No symptoms or risks identified at this time. Initial Sepsis Screen: Does the patient meet any 2 criteria? No. Patient's initial sepsis screen is negative. Does the patient have a suspected source of infection? No. Patient's initial sepsis screen is negative. Risk Assessment: Do you want to hurt yourself or someone else? Patient reports no desire to harm self or others. Onset of symptoms was February 03, 2023. 11:30 Method Of Arrival: Ambulatory 11:30 Acuity: RUDY 4 hb Historical: - Allergies: 11:32 No Known Allergies; hb - PMHx: 11:32 Asthma; BPH; Hyperlipidemia; hb - Immunization history:: Adult Immunizations up to date. - Social history:: Smoking status: Patient denies any tobacco usage or history of. Screenin:48 [facility] ED Fall Risk Assessment (Adult) History of falling in the last 3 months, mb9 including since admission Yes- single mechanical fall (1 pt) Confusion or Disorientation No (0 pts) Intoxicated or Sedated No (0 pts) Impaired Gait No (0 pts) Mobility Assist Device Used No (0 pt) Altered Elimination No (0 pt) Score/Fall Risk Level 0 - 2 = Low Risk Oriented to surroundings, Maintained a safe environment, Educated pt \T\ family on fall prevention, incl call for assistance when getting out of bed. Abuse screen: Denies threats or abuse. Nutritional screening: No deficits noted. Tuberculosis screening: No symptoms or risk factors identified. Assessment: 12:47 General: Appears in no apparent distress. Behavior is calm, cooperative. Pain: mb9 Complains of pain in right shoulder Pain radiates to right arm Quality of pain is described as throbbing, Pain began 1 day ago. Is intermittent. Neuro: Nguyen Agitation-Sedation Scale (RASS): 0 - Alert and Calm. Cardiovascular: Patient's skin is warm and dry. Respiratory: Airway is patent Respiratory effort is even, unlabored, Respiratory pattern is regular, symmetrical. GI: No signs and/or symptoms were reported involving the gastrointestinal system. : No signs and/or symptoms were reported regarding the genitourinary system. EENT: No signs and/or symptoms were reported regarding the EENT system. Derm: Skin is pink, warm \T\ dry. Musculoskeletal: Range of motion: intact in all extremities. Vital Signs: 11:30 BP 145 / 85; Pulse 88; Resp 16; Temp 98.2(TE); Pulse Ox 97% on R/A; Weight 82.55 kg; hb Height 5 ft. 8 in. ; Pain 10/10; 11:30 Body Mass Index 27.67 (82.55 kg, 172.72 cm) hb 11:30 Pain Scale: Adult hb ED Course: 11:08 Patient arrived in ED. im 11:10 Gurvinder Villalobos MD is Attending Physician. ec2 11:31 Triage completed. hb 11:32 Arm band placed on. hb 12:22 Shoulder Right (2 View) XRAY In Process Unspecified. EDMS 12:22 Clavicle Right XRAY In Process Unspecified. EDMS 12:47 Checo Alcaraz MD is Referral Physician. ec2 12:48 Patient has correct armband on for positive identification. mb9 12:49 No provider procedures requiring assistance completed. Patient did not have IV access mb9 during this emergency room visit. 12:51 Alexandrea Perales RN is Primary Nurse. mb9 Administered Medications: No medications were administered Medication: 12:49 VIS not applicable for this client. mb9 Outcome: 12:46 Discharge ordered by . ec2 12:51 Discharged to home ambulatory, mb9 12:51 Condition: stable 12:51 Discharge instructions given to patient, Instructed on discharge instructions, follow up and referral plans. Demonstrated understanding of instructions, follow-up care, 12:52 Patient left the ED. mb9 Signatures: Dispatcher [employer] Cahrleen Redd RN RN Alexandrea Perales RN RN mb9 Suzette Liang Villalobos, Gurvinder, MD MD ec2
--- NOTE | 2023-02-04 12:47 | EDPHYS ---
Physician Documentation [facility] Name: Yunior Galindo Age: 57 yrs Sex: Male : 1965 Arrival Date: 02/04/2023 Time: 11:04 Bed IW1 Private MD: ED Physician Gurvinder Villalobos HPI: 02/04 11:24 This 57 yrs old Male presents to ER via Unassigned with complaints of Fall ec2 Injury - [id number], Shoulder Injury - right. 11:24 Patient arrives today due to concern for right shoulder injury. States that he was ec2 running yesterday and subsequently fell down. Complaining of right shoulder pain. Reports that he feels there is a deformity there. States a history of previous clavicle injury. Patient reports no loss of consciousness or other concerns.. Historical: - Allergies: 11:32 No Known Allergies; hb - PMHx: 11:32 Asthma; BPH; Hyperlipidemia; hb - Immunization history:: Adult Immunizations up to date. - Social history:: Smoking status: Patient denies any tobacco usage or history of. ROS: 11:24 Constitutional: as per hpi ec2 Exam: 11:24 Constitutional: GEN: NAD Head: atraumatic Eyes: EOMI Ears: External ears are ec2 normal. CV: regular rate LUNGS: no respiratory distress ABD: non-distended SKIN: no evidence of rashes MSK: Right AC joint with swelling noted, no obvious tenting appreciated throughout the clavicle, tenderness palpation in this area, proximal humerus with no tenderness palpation or deformity. Intact distal neurovascular status. Vital Signs: 11:30 BP 145 / 85; Pulse 88; Resp 16; Temp 98.2(TE); Pulse Ox 97% on R/A; Weight 82.55 kg; hb Height 5 ft. 8 in. ; Pain 10/10; 11:30 Body Mass Index 27.67 (82.55 kg, 172.72 cm) hb 11:30 Pain Scale: Adult hb MDM: 11:11 Patient medically screened. ec2 11:24 ED course: Patient arrives today for evaluation of a right shoulder injury. Examination ec2 remarkable for well-appearing nontoxic individual is otherwise in no acute distress who has some right AC tenderness palpation. Will obtain right clavicle and shoulder x-ray. Currently considering AC sprain, clavicle fracture, proximal humerus fracture. I considered other processes such as neurovascular compromise however patient with intact distal neurovascular status.. 12:46 ED course: Shoulder x-ray dependently reviewed and interpreted by me, shows obvious AC ec2 joint separation. No fracture appreciated. Will discharge home with sling and Ortho referral. Return precautions given.. 12:48 Data reviewed: vital signs. ec2 02/04 11:24 Order name: Shoulder Right (2 View) XRAY; Complete Time: 12:44 ec2 02/04 11:24 Order name: Clavicle Right XRAY; Complete Time: 12:44 ec2 Administered Medications: No medications were administered Disposition Summary: 02/04/23 12:46 Discharge Ordered Notes: Location: Home ec2 Condition: Stable ec2 Diagnosis - Sprain of right acromioclavicular joint, initial encounter ec2 Followup: ec2 - With: Checo Alcaraz MD - When: - Reason: Recheck today's complaints Discharge Instructions: - Discharge Summary Sheet ec2 - Acromioclavicular Separation ec2 Forms: - Medication Reconciliation Form ec2 - Thank You Letter ec2 - Antibiotic Education ec2 - Prescription Opioid Use ec2 - Patient Portal Instructions ec2 - Leadership Thank You Letter ec2 Signatures: Dispatcher [employer] Charleen Redd RN RN hb Corral, Edwin, MD MD ec2
[2023-02-04 13:10] VITALS: BP 145/85; TEMP 98.2; O2SAT 97
== END 2023-02-04 12:52 | disposition home or self-care (01) ==
LOC: ER 11:04
DX: S43.51XA Sprain of right acromioclavicular joint, initial encounter (principal)
CPT/HCPCS: 99282